=== PATIENT | male | born 1990 | race Caucasian/White ===

== ENCOUNTER 2020-10-24 07:23 | Day surgery (SDC) | payer OTHER ==
[~2020-10-24] VITALS: Ht 170.2 cm; Wt 76.2 kg
[2020-10-24 07:18] VITALS: BP 143/79
[2020-10-24 12:15] VITALS: BP 145/82
== END 2020-10-24 12:45 ==
LOC: DS 07:23 → OR 09:00 → GI 09:00 → DS 09:00
PROVIDERS: ATTEND Internal Medicine Gastroenterology
DX: K62.5 Hemorrhage of anus and rectum (principal); K51.90 Ulcerative colitis, unspecified, without complications; K51.40 Inflammatory polyps of colon without complications; Z79.82 Long term (current) use of aspirin
CPT/HCPCS: 45378; J1200; J1610; J2250; J2310; J3010; J3490